=== PATIENT | female | born 1960 | race Caucasian/White ===

== ENCOUNTER 2017-06-10 06:11 | Inpatient (IN) | payer BC ==
[2017-06-04 15:50] LABS: BASOPHILS % (AUTO) 0.4 % (0-1); EOSINOPHILS # (AUTO) 0.1 X10'3 (0-0.9); EOSINOPHILS % (AUTO) 1.8 % (0-6); LYMPHOCYTES # (AUTO) 2.6 X10'3 (1.1-4.8); LYMPHOCYTES % (AUTO) 36.1 % (21-51); MEAN CORPUSCULAR HEMOGLOBIN 31.4 PG (27.0-31.0); MEAN CORPUSCULAR HGB CONC 33.3 % (33.0-36.5); MEAN CORPUSCULAR VOLUME 94.1 FL (78-98); MEAN PLATELET VOLUME 7.4 FL (7.4-10.4); MONOCYTES # (AUTO) 0.7 X10'3 (0-0.9); MONOCYTES % (AUTO) 9.3 % (2-12); NEUTROPHILS # (AUTO) 3.7 X10'3 (1.8-7.7); NEUTROPHILS % (AUTO) 52.4 % (42-75); PRE OP HEMATOCRIT 44.7 % (35.0-45.0); PRE OP HEMOGLOBIN 14.9 g/dL (12.0-16.0); PRE OP PLATELET COUNT 282 X10'3 (140-440); RED BLOOD COUNT 4.75 X10'6 (4.20-5.60); RED CELL DISTRIBUTION WIDTH 13.7 % (11.5-14.5)
[2017-06-04 16:06] LABS: ALBUMIN/GLOBULIN RATIO 1.1 (1.1-1.5); ALKALINE PHOSPHATASE 90 IU/L (46-116); BLOOD UREA NITROGEN 13 MG/DL (7-18); BUN/CREATININE RATIO 16.7 (6.6-38.0); CALCIUM 9.4 MG/DL (8.5-10.1); CHLORIDE 106 MMOL/L (99-107); CREATININE 0.78 MG/DL (0.40-0.90); PRE OP ALT 24 U/L (30-65); PRE OP ANION GAP 10 (8-16); PRE OP AST 14 U/L (10-37); PRE OP BILIRUB, TOTAL 0.3 MG/DL (0.0-1.0); PRE OP GLUCOSE 92 MG/DL (70-104); PRE OP SODIUM 145 MMOL/L (135-145); TOTAL CARBON DIOXIDE 29.5 MMOL/L (24-32); TOTAL PROTEIN 7.8 G/DL (6.4-8.2); eGFR 76 ML/MIN
[2017-06-10] VITALS (18 sets, daily range): BP systolic 84–136; BP diastolic 48–92
[~2017-06-10] VITALS: Ht 167.6 cm; Wt 55.0 kg
[~2017-06-10 06:11] MED LIST: CA/MAG/ZINC; CHOL400T14 PO; CHON250C PO; ESTR10TA VG; GLUC100017; VANCOMYCIN INJ 1000 MG in NORMAL SALINE 250ml IV.SOLN IV ONE; ceFAZolin 2gm in dextrose, iso 100 ML IV ONE; famotidine 20mg tablet PO ONE; ringers solution, lacted 1,000 ML IV SCH; tranexamic acid inj. 530 MG in normal saline 100ml IV soln 94.7 ML IV ONE
[2017-06-10] MEDS ORDERED: LIDOcaine 1% (10mg/ml) 2ml vial ONE (06:34)
[2017-06-10] MEDS ORDERED: ketorolac trometh. 30mg/ml inj. ONE (07:49)
[2017-06-10] MEDS ORDERED: ROPIVAcaine 0.5% (5mg/ml) 30ml vial ONE ×2 (07:50→10:08)
[2017-06-10] MEDS ORDERED: vancomycin 1,000mg inj ONE (07:50)
[2017-06-10] MEDS ORDERED: diphenhydrAMINE 50 mg/ml inj ONE (08:58)
[2017-06-10] MEDS ORDERED: midazolam 2 mg/2 ml injection ONE ×2 (08:59→09:02)
[2017-06-10] MEDS ORDERED: fentaNYL/PF 50MCG/1 ML 2ML syringe ONE ×2 (08:59→09:45)
[2017-06-10] MEDS ORDERED: tranexamic acid inj. 530 MG in normal saline 100ml IV soln 94.7 ML IV ONE ×2 (09:05→09:30)
[2017-06-10] MEDS ORDERED: MORPHINE SULFATE/PF 0.5 MG/ML 10ML AMPUL ONE (09:08)
[2017-06-10] MEDS ORDERED: LIDOcaine 1%/PF (10mg/ml) 5ml vial ONE (09:21)
[2017-06-10] MEDS ORDERED: propofol inj 20 ML IV ONE ×2 (09:21→10:15)
[2017-06-10] MEDS ORDERED: cloNIDine hcl/PF 100mcg/ml inj ONE (10:00)
[2017-06-10] MEDS ORDERED: dexamethasone sod phosphate 4mg/ml inj. ONE (10:09)
[2017-06-10] MEDS ORDERED: naloxone 2mg/2ml inj 1.1 MG in normal saline 500ml IV soln 500 ML IV PRN (10:48)
[2017-06-10] MEDS ORDERED: ringers solution, lacted 1,000 ML IV SCH (10:48)
[2017-06-10] MEDS ORDERED: HYDROmorphone 1 mg/ml syringe IV PRN ×4 (10:50→11:55)
[2017-06-10] MEDS ORDERED: diphenhydrAMINE 50 mg/ml inj IV PRN (10:50)
[2017-06-10] MEDS ORDERED: ondansetron/PF 4mg/2ml inj IV PRN ×3 (10:50→11:55)
[2017-06-10] MEDS ORDERED: ondansetron/PF 4mg/2ml inj ONE (11:07)
[2017-06-10] MEDS ORDERED: ePHEDrine 50MG/ML INJ. ONE (11:16)
[2017-06-10] MEDS ORDERED: bisacodyl 10mg suppository rectal RC PRN (11:55)
[2017-06-10] MEDS ORDERED: acetaminophen 325mg tablet PO PRN (11:55)
[2017-06-10] MEDS ORDERED: oxyCODONE IR 5mg (immed. release) tablet PO PRN (11:55)
[2017-06-10] MEDS ORDERED: diphenhydrAMINE 25mg capsule PO PRN ×2 (11:55)
[2017-06-10] MEDS ORDERED: magnesium hydroxide 30ml (MOM) UD suspension PO PRN (11:55)
[2017-06-10] MEDS ORDERED: ESTRADIOL PR SCH (12:20)
[2017-06-10] MEDS ORDERED: TRANEXAMIC ACID IV ONE (15:00)
[2017-06-10] MEDS ORDERED: NORMAL SALINE IV ONE (15:00)
[2017-06-10] MEDS: ketorolac tromethamine 15mg/ml inj. IV SCH ×2 (16:10→20:42)
[2017-06-10] MEDS: acetaminophen 325mg tablet PO SCH ×2 (16:17→20:42)
[2017-06-10] MEDS: gabapentin 300mg capsule PO SCH ×2 (19:04→20:41)
[2017-06-10] MEDS: ceFAZolin inj. 1,000 MG in dextrose 5%-water 50ml 50 ML IV SCH (19:05)
[2017-06-10] MEDS ORDERED: vancomycin/NS 1 GM ADD-VANTAGE 250 ML IV SCH (20:00)
[2017-06-10] MEDS: celeCOXIB 100mg capsule PO SCH (20:00)
[2017-06-10] MEDS: sennosides 8.6mg tablet PO SCH (20:41)
[2017-06-10] MEDS: potassium cl 20mEq in 1/2 NS 1,000 ML IV SCH (20:41)
[2017-06-11 02:00] VITALS: BP 81/43
[2017-06-11] MEDS: ceFAZolin inj. 1,000 MG in dextrose 5%-water 50ml 50 ML IV SCH (02:06)
[2017-06-11] MEDS: ketorolac tromethamine 15mg/ml inj. IV SCH ×4 (02:06→20:29)
[2017-06-11] MEDS: acetaminophen 325mg tablet PO SCH ×4 (02:06→20:29)
[2017-06-11 05:00] VITALS: BP 94/56
[2017-06-11] MEDS: oxyCODONE IR 5mg (immed. release) tablet PO PRN ×2 (05:42→21:55)
[2017-06-11 07:19] LABS: BASOPHILS % (AUTO) 0.2 % (0-1); EOSINOPHILS # (AUTO) 0.2 X10'3 (0-0.9); EOSINOPHILS % (AUTO) 2.1 % (0-6); HEMATOCRIT 36.8 % (35.0-45.0); LYMPHOCYTES # (AUTO) 2.7 X10'3 (1.1-4.8); LYMPHOCYTES % (AUTO) 28.4 % (21-51); MEAN CORPUSCULAR HEMOGLOBIN 30.9 PG (27.0-31.0); MEAN CORPUSCULAR HGB CONC 32.7 % (33.0-36.5); MEAN CORPUSCULAR VOLUME 94.6 FL (78-98); MEAN PLATELET VOLUME 7.9 FL (7.4-10.4); MONOCYTES # (AUTO) 0.7 X10'3 (0-0.9); MONOCYTES % (AUTO) 6.9 % (2-12); NEUTROPHILS % (AUTO) 62.4 % (42-75); PLATELET COUNT 226 X10'3 (140-440); RED BLOOD COUNT 3.89 X10'6 (4.20-5.60); RED CELL DISTRIBUTION WIDTH 13.5 % (11.5-14.5); WHITE BLOOD COUNT 9.6 X10'3 (4.5-11.0)
[2017-06-11 07:38] LABS: ANION GAP 7 (8-16); CHLORIDE 110 MMOL/L (99-107); POTASSIUM 3.9 MMOL/L (3.5-5.1); SODIUM 144 MMOL/L (135-145); TOTAL CARBON DIOXIDE 27.3 MMOL/L (24-32)
[2017-06-11] MEDS: gabapentin 300mg capsule PO SCH ×3 (08:57→20:29)
[2017-06-11] MEDS: potassium cl 20mEq in 1/2 NS 1,000 ML IV SCH ×3 (08:57→20:29)
[2017-06-11] MEDS: aspirin 325mg tablet PO SCH (08:58)
[2017-06-11] MEDS: vitamin D (cholecalciferol) 1,000 unit tablet PO SCH (08:58)
[2017-06-11 10:00] VITALS: BP 98/55
[2017-06-11 15:00] VITALS: BP 104/56
[2017-06-11 18:30] VITALS: BP 100/72
[2017-06-11] MEDS: sennosides 8.6mg tablet PO SCH (20:29)
[2017-06-11 22:00] VITALS: BP 106/60
[2017-06-12] MEDS: acetaminophen 325mg tablet PO SCH ×2 (02:13→08:17)
[2017-06-12] MEDS: oxyCODONE IR 5mg (immed. release) tablet PO PRN ×2 (02:13→07:03)
[2017-06-12] MEDS: potassium cl 20mEq in 1/2 NS 1,000 ML IV SCH (03:55)
[2017-06-12 05:00] VITALS: BP 98/49
[2017-06-12 06:21] LABS: BASOPHILS % (AUTO) 0.2 % (0-1); EOSINOPHILS # (AUTO) 0.2 X10'3 (0-0.9); EOSINOPHILS % (AUTO) 3.4 % (0-6); HEMATOCRIT 30.2 % (35.0-45.0); HEMOGLOBIN 10.1 g/dl (12.0-16.0); LYMPHOCYTES # (AUTO) 2.1 X10'3 (1.1-4.8); LYMPHOCYTES % (AUTO) 28.2 % (21-51); MEAN CORPUSCULAR HEMOGLOBIN 31.3 PG (27.0-31.0); MEAN CORPUSCULAR HGB CONC 33.3 % (33.0-36.5); MEAN PLATELET VOLUME 7.9 FL (7.4-10.4); MONOCYTES # (AUTO) 0.9 X10'3 (0-0.9); MONOCYTES % (AUTO) 12.4 % (2-12); NEUTROPHILS # (AUTO) 4.1 X10'3 (1.8-7.7); NEUTROPHILS % (AUTO) 55.8 % (42-75); PLATELET COUNT 189 X10'3 (140-440); RED BLOOD COUNT 3.22 X10'6 (4.20-5.60); RED CELL DISTRIBUTION WIDTH 13.6 % (11.5-14.5); WHITE BLOOD COUNT 7.4 X10'3 (4.5-11.0)
[2017-06-12] MEDS: gabapentin 300mg capsule PO SCH ×2 (08:16→12:28)
[2017-06-12] MEDS: celeCOXIB 100mg capsule PO SCH (08:16)
[2017-06-12] MEDS: vitamin D (cholecalciferol) 1,000 unit tablet PO SCH (08:17)
[2017-06-12] MEDS: aspirin 325mg tablet PO SCH (08:18)
[2017-06-12] MEDS ORDERED: ASPI-1 PO (09:21)
[2017-06-12] MEDS ORDERED: ONDA4TAB9 PO (09:21)
[2017-06-12] MEDS ORDERED: scopolamine 1mg/72 hr patch TD ONE (09:35)
[2017-06-12 10:00] VITALS: BP 96/54
== END 2017-06-12 14:30 | disposition home or self-care (01) | DRG 470 ==
LOC: PAS IN 06:11 → EDSTATUS 09:00 → PACU 11:44 → ORTHO 4S 13:00
PROVIDERS: ADMIT Orthopaedic Surgery; ATTEND Orthopaedic Surgery
PROC: 3E0T3BZ Introduction of Anesthetic Agent into Peripheral Nerves and Plexi, Percutaneous Approach (ICD-10-PCS; 2017-06-10)
PROC: 8E0YXBZ Computer Assisted Procedure of Lower Extremity (ICD-10-PCS; 2017-06-10)
PROC: 8E0YXCZ Robotic Assisted Procedure of Lower Extremity (ICD-10-PCS; 2017-06-10)
PROC: 0SRD0J9 Replacement of Left Knee Joint with Synthetic Substitute, Cemented, Open Approach (ICD-10-PCS; principal; 2017-06-10 08:58)
DX: M17.32 Unilateral post-traumatic osteoarthritis, left knee (principal); D62 Acute posthemorrhagic anemia; Z68.1 Body mass index [BMI] 19.9 or less, adult; M17.12 Unilateral primary osteoarthritis, left knee; M21.062 Valgus deformity, not elsewhere classified, left knee; Z88.8 Allergy status to other drugs, medicaments and biological substances; Z82.3 Family history of stroke; Z72.89 Other problems related to lifestyle; Z79.899 Other long term (current) drug therapy
CPT/HCPCS: 36415; 80051; 80053; 85025; 87070; 97110; 97116; 97162; 97530; A4615; A6449; A6455; A7000; C1713; C1758; C1776; J0690; J0735; J1100; J1200; J1885; J2001; J2250; J2274; J2405; J2704; J2795; J3010; J3370; J3490; J7060; J7120